=== PATIENT | male | born 1955 | race Caucasian/White ===

== ENCOUNTER → 2023-05-25 10:51 | Outpatient (REF) | payer OTHER, SELFPAY | LOC: HWRCS 10:51 | PROVIDERS: ATTENDING PHYSICIAN Internal Medicine Cardiovascular Disease; FAMILY PHYSICIAN Emergency Medicine | DX: R06.02 Shortness of breath (principal) | CPT/HCPCS: 93306 ==

== ENCOUNTER → 2023-06-02 07:06 | Outpatient (REF) | payer OTHER, SELFPAY | LOC: DHCBC/DCA 07:06 | PROVIDERS: ATTENDING PHYSICIAN Internal Medicine Cardiovascular Disease; FAMILY PHYSICIAN Emergency Medicine | DX: R07.89 Other chest pain (principal) | CPT/HCPCS: 78452; 93017; A9500; J2785 ==

== ENCOUNTER → 2023-06-15 11:25 | Outpatient (REF) | payer OTHER, SELFPAY | LOC: HWRAD 11:25 | PROVIDERS: ATTENDING PHYSICIAN Internal Medicine Critical Care Medicine; FAMILY PHYSICIAN Emergency Medicine | DX: R06.09 Other forms of dyspnea (principal); R91.8 Other nonspecific abnormal finding of lung field | CPT/HCPCS: 71250 ==

== ENCOUNTER 2024-06-01 17:26 | Emergency (ER) | payer OTHER, SELFPAY ==
[2024-06-01 17:27] VITALS: BP 139/90
[2024-06-01 17:43] LABS: % Eosinophils 2.4 % (0-6); % Immature Granulocytes 0.4 % (0-0.5); % Lymphocytes 39.6 % (20.5-51.1); % Monocytes 6.9 % (1.7-9.3); % Neutrophils 49.7 % (42.2-75.2); Absolute Basophils 0.1 10^3/uL (0-0.2); Absolute Eosinophils 0.2 10^3/uL (0-0.7); Absolute Lymphocytes 3.2 10^3/uL (1.2-3.4); Absolute Monocytes 0.6 10^3/uL (0.1-0.6); Hematocrit 49.2 % (39.0-52.0); Hemoglobin 16.9 g/dL (13.0-18.0); Mean Corp Hgb Conc. 34.3 g/dL (33.0-37.0); Mean Corpuscular Hgb 30.9 pg (27.0-31.0); Mean Corpuscular Volume 89.9 fL (80.0-94.0); Mean Platelet Volume 9.1 fL (7.4-10.4); Nucleated Red Blood Cells % 0 % (-); Platelet Count 163 10^3/uL (130-400); Red Blood Cell Count 5.47 10^6/uL (4.70-6.10); Red Cell Dist. Width 13.3 % (11.5-14.5)
[2024-06-01 18:09] LABS: ALT (SGPT) 38 U/L (0-50); AST (SGOT) 35 U/L (17-59); Albumin 4.4 g/dl (3.5-5.0); Alkaline Phosphatase 99 U/L (38-126); Blood Urea Nitrogen 21 mg/dl (9-20); Calcium 9.5 mg/dl (8.4-10.2); Carbon Dioxide 27 mmol/L (22-30); Chloride 105 mmol/L (98-107); Glucose 102 mg/dl (70-99); Potassium 4.2 mmol/L (3.5-5.1); Sodium 139 mmol/L (135-145); Total Bilirubin 0.6 mg/dl (0.2-1.3); Total Protein 7.2 g/dl (6.3-8.2); eGFR > 60.00
[2024-06-01 19:51] VITALS: BP 141/90
[2024-06-01 19:52] VITALS: BMI 32.9
[2024-06-01 20:00] VITALS: BP 138/88
--- NOTE | 2024-06-01 20:04 | ED.GENMED ---
History of Present Illness
General
Chief Complaint: Skin Problem
Source: patient
Exam Limitations: none
Time Seen by Provider: 06/01/24 19:59
Nursing documentation reviewed up to this point in time: agreed with
History of Present Illness
History of Present Illness:
68 yr old male presents to the ER for evaluation. Patient reports on Wednesday 3 days ago he was walking with socks and a splinter went through his socks from a hardwood floor. He was able to remove part of splinter but believes he still has a piece
retained in his right foot. He did start with some redness and swelling to the area which is why he came to the ER. He is a diabetic . He denies any fever/chills. c/o of mild soreness to right foot.
Past History
Past History
ED Past Medical History: Hypercholesterolemia, NIDDM (Patient states he was taken off of his diabetic medication since he lost over 50 pounds.), Hypothyroidism and Other (Anaphylaxis)
Social History
Tobacco: Non-smoker
Alcohol: None
Drug: None
Personal:
Living: with family
Employment: Employed
Family History
Family History: Other ([place])
Review of Systems
Review of Systems
Allergies reviewed?: Yes
All Other Systems: ROS reviewed and negative except as documented in HPI and ROS
Constitutional: Reports no symptoms; Denies fever
Cardiac: Reports no symptoms
ABD/GI: Reports no symptoms
: Reports no symptoms
Musculoskeletal: Reports no symptoms
Skin: Reports no symptoms
Neurological: Reports no symptoms
Hematologic/Lymphatic: Reports no symptoms
Psychiatric: Reports no symptoms
Phy Exam
General Physical Exam
General Presentation: no apparent distress
General age: appears stated age
General Skin: warm and dry
General Habitus: normal
General Mental: alert
General Hydration: appears well hydrated
Neurological Exam
Neurological Exam: alert and oriented x3
Musculoskeletal Exam
Musculoskeletal Exam: full ROM and other (+ Puncture to right lateral foot along fifth metatarsal with mild surrounding erythema and swelling)
Skin Exam
Skin Exam: normal color and warm/dry
Psychiatric Exam
Psychiatric Exam: normal mood/affect
Course
Orders/Labs/Results
Orders:
Orders
06/01/24 17:34
Complete Blood Count/With Diff Urgent
Comprehensive Metabolic Panel Urgent
06/01/24 20:05
Foot, Right 3 View [CR Foot - Right Min 3 Views] Urgent
Comment:
Reason For Exam: foreign body lateral foot
06/01/24 21:22
Cephalexin Monohydrate [Keflex] 500 mg PO NOW STA
Abnormal Lab Results
06/01/24
17:34
BUN 21 H mg/dl
(9-20)
Glucose 102 H mg/dl
(70-99)
06/01/24 17:34
06/01/24 17:34
Vital Signs
Initial and Last Documented VS:
Initial Vital Signs
Temp Pulse Resp BP Pulse Ox
98.0 F 71 16 139/90 98
06/01/24 17:27 06/01/24 17:27 06/01/24 17:27 06/01/24 17:27 06/01/24 17:27
Last Documented Vital Signs
Temp Pulse Resp BP Pulse Ox
98.0 F 70 16 135/89 97
06/01/24 17:27 06/01/24 21:49 06/01/24 17:27 06/01/24 21:49 06/01/24 21:49
Procedures
Foreign Body Removal-Skin
Wound explored and foreign body removed?: Yes
Anesthesia: local
Foreign body removed using: incision
Foreign body removed: completely
MDM/Problems Addressed
MDM/Problems Addressed:
As documented patient is a 68-year-old male whose had a splinter in his foot 2 days ago. He was able to remove a piece of the splinter but still felt that he had a splinter retained. I was able to visualize the end of the splinter in his right
lateral foot. I was able to anesthetize his foot and using a small 11 blade scalpel with a very small incision was able to successfully remove a splinter in 1 piece. Patient has very mild erythema to this area will DC on Keflex. He was wearing a
sock when the splinter initially went into his foot and not a sneaker/boot. He denies any fever chills he is nontoxic I did review very close outpatient follow-up with family doctor for this and to return if any worsening of symptoms, s/s of
infection reviewed.
*Radiology
Radiology exam reviewed: radiology read reviewed
*Pulse Oximetry
Patient hypoxic: no
*Critical Care Note
Total Time (30-74mins, 75-104mins- exclusive of procedures): Not Applicable
ED Attending Note
-
Portions of this chart may have been created with voice recognition software.� Occasional wrong word or��sound alike� substitutions may have occurred due to the inherent limitations of voice recognition software.
Discharge Plan
Departure
Patient Disposition: Home (Routine Discharge)
Date of Disposition: 06/01/24
Time of Disposition: 21:23
Patient with high blood pressure during this ER visit?: Yes
Condition: Fair
Covid-19: Not Applicable
Discharge Problem:
Foreign body (FB) in soft tissue
Instructions: Foreign Body in Skin ED, BLOOD PRESSURE
Prescriptions:
New
cephalexin 500 mg capsule
500 mg PO Q6H Qty: 20 0RF
No Action
epinephrine [EpiPen 2-Hiram] 0.3 MG/0.3 ML auto-injector
0.3 mg IM ONCE PRN (Reason: severe allergic rxn) Qty: 2 0RF
levothyroxine 100 MCG tablet
100 mcg PO DAILY
Patient Comments:
total 188mg
levothyroxine 88 MCG tablet
88 mcg PO DAILY
Patient Comments:
total 188 mg
allopurinol 300 MG tablet
300 mg PO DAILY
pravastatin 20 MG tablet
20 mg PO DAILY
albuterol sulfate 1 PUFF HFA aerosol inhaler
2 puff inhalation R Q4HPRN PRN (Reason: SOB)
tadalafil [Cialis] 10 MG tablet
10 mg PO PRN PRN (Reason: sex)
losartan 25 MG tablet
25 mg PO DAILY
ergocalciferol (vitamin D2) 50,000 UNITS capsule
50,000 units PO CARLSON
multivitamin with folic acid [Tab-A-Riaz] 1 TABLET tablet
1 tab PO DAILY
prednisone 10 MG tablet
10 mg PO .TAPER Qty: 30 0RF
Rx Instructions:
Take 40mg daily x3days, 30mg daily x3days,
20mg daily x3days, 10mg daily x3days.
albuterol sulfate 2.5 MG/3 ML solution for nebulization
2.5 mg inhalation R Q4HPRN PRN (Reason: breathing) Qty: 30 0RF
oxycodone-acetaminophen [Percocet] 5-325 mg tablet
1 tab PO Q4HPRN PRN (Reason: pain) Qty: 12 0RF
prednisone 20 mg tablet
40 mg PO DAILY Qty: 10 0RF
cyclobenzaprine 10 mg tablet
10 mg PO TID PRN (Reason: muscle spasm) Qty: 10 0RF
albuterol sulfate 1.25 mg/3 mL solution for nebulization
1.25 mg inhalation QID PRN (Reason: shortness of breath or wheezing) Qty: 90 0RF
levofloxacin 500 mg tablet
500 mg PO DAILY 7 Days Qty: 7 0RF
prednisone 50 mg tablet
50 mg PO DAILY Qty: 5 0RF
Referrals:
Bria Sanchez MD [Family Provider] -
Activity Restrictions/Additional Instructions:
As discussed antibiotic was sent to her pharmacy to take daily for the next 5 days. Please closely monitor foot. Return if any increasing redness, red streaking, pain, fever, chills or drainage. Wash with soap and water twice a day. Do not apply
ointment to the area allowed to drain. See your family in 2 days for wound check.
Interventions
Interventions:
*Risk Screen - Suicide Last Done: 06/01/24 17:27
*General Assessment Last Done: 06/01/24 17:27
*Neglect/Abuse Screening Last Done: 06/01/24 17:27
ED- Fall Risk Assessment Last Done: 06/01/24 19:52
*ED COVID-19 Vaccine History Last Done: 06/01/24 17:27
*Nursing Disposition Last Done: 06/01/24 21:40
ED-Skin Assessment Last Done: 06/01/24 19:52
Discharge Date and Time
Discharge Date/Time: 06/01/24 21:50
Print Language: [place]
[2024-06-01] MEDS: KEFLEX 500 MG PO (21:41)
[2024-06-01 21:48] VITALS: BP 135/89
[2024-06-01 21:49] VITALS: BP 135/89
== END 2024-06-01 21:50 | disposition home or self-care (01) ==
LOC: EMR 17:26
PROVIDERS: Student in an Organized Health Care Education/Training Program; EMERGENCY PHYSICIAN Emergency Medicine; FAMILY PHYSICIAN Emergency Medicine
DX: M79.5 Residual foreign body in soft tissue (principal); W45.8XXA Other foreign body or object entering through skin, initial encounter; E78.00 Pure hypercholesterolemia, unspecified; E11.9 Type 2 diabetes mellitus without complications; E03.9 Hypothyroidism, unspecified
CPT/HCPCS: 99283; 10120; 73630; 80053; 85025

== ENCOUNTER 2024-09-29 09:43 | Emergency (ER) | payer SELFPAY ==
[2024-09-29 09:46] VITALS: BP 141/92
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
[2024-09-29] MEDS: TORADOL 30 MG IM (10:30)
[2024-09-29 11:39] VITALS: BP 135/91
== END 2024-09-29 11:45 | disposition home or self-care (01) ==
LOC: EMR 09:43
PROVIDERS: EMERGENCY PHYSICIAN Student in an Organized Health Care Education/Training Program; FAMILY PHYSICIAN Emergency Medicine
DX: S13.4XXA Sprain of ligaments of cervical spine, initial encounter (principal); M54.9 Dorsalgia, unspecified; V79.40XA Driver of bus injured in collision with unspecified motor vehicles in traffic accident, initial encounter; E78.00 Pure hypercholesterolemia, unspecified; E11.9 Type 2 diabetes mellitus without complications; E03.9 Hypothyroidism, unspecified
CPT/HCPCS: 96372; 99284; 72050; 72110

== ENCOUNTER 2025-04-23 06:34 | Emergency (ER) | payer OTHER, SELFPAY ==
[2025-04-23 06:38] VITALS: BP 150/86
--- NOTE | 2025-04-23 07:21 | ED.GENMED ---
History of Present Illness
General
Chief Complaint: Musculo-Skeletal Complaint
Source: patient
Time Seen by Provider: 04/23/25 07:12
History of Present Illness
History of Present Illness:
69-year-old male presenting to the emergency department for evaluation after he was stepping off of his tractor yesterday afternoon when he felt a sudden pain in the back of his right knee, since that time has been unable to range of motion the knee
due to pain and notes a harder time ambulating secondary to the pain. He did not take anything for the pain prior to arrival. He notes some mild nonspecific injuries to the knee previously but no hardware within the right knee. No fevers or
infectious symptoms. No other concerns.
Past History
Past History
ED Past Medical History: Asthma, COPD, Hypercholesterolemia, NIDDM (Patient states he was taken off of his diabetic medication since he lost over 50 pounds.), Hypothyroidism and Other (Anaphylaxis)
ED Past Surgical History: Orthopedic and Urological
Social History
Tobacco: Non-smoker
Alcohol: None
Drug: None
Personal:
Living: with family
Employment: Employed
Family History
Family History: Other ([place])
Review of Systems
Review of Systems
All Other Systems: ROS reviewed and negative except as documented in HPI and ROS
Phy Exam
Physical Exam
Physical Exam:
GENERAL: Alert , in no apparent distress
EYE: conjunctiva clear
Head: Normocephalic atraumatic
NECK: Supple,
ENT: mmm.
LUNGS: no acute respiratory distress
NEUROLOGICAL: Alert and oriented
SKIN: Warm and dry, skin intact.
MUSCULOSKELETAL: Right lower extremity: Right knee has no obvious deformity, erythema, edema, ecchymosis, abrasions or lacerations. There is no joint effusion. There is mild tenderness posteriorly on palpation. The patella and quadriceps tendon
are intact. Extremities otherwise warm and well-perfused. Range of motion of the right knee is significantly limited due to pain.
PSYCH: Normal and appropriate interaction.
Scores
Heart Failure Risk
Heart Failure Risk Score: Not Applicable
Heart Score for Chest Pain Patients
STEMI patient?: Not applicable
Withdrawal Assessment of Alcohol
Withdrawal Assessment Completed?: Not applicable
Course
Orders/Labs/Results
Orders:
Orders
04/23/25 06:42
Knee, Right 4 or More Views [CR Knee- Right 4 Or More View*] Urgent
Comment:
Reason For Exam: pain, no direct impact.
04/23/25 07:20
Knee Immobilizer Right-Treatme ONCE
Oxycodone/Acetaminophen [Percocet 5/325] 1 tablet PO NOW STA
Vital Signs
Initial and Last Documented VS:
Initial Vital Signs
Temp Pulse Resp BP Pulse Ox
97.9 F 70 18 150/86 98
04/23/25 06:38 04/23/25 06:38 04/23/25 06:38 04/23/25 06:38 04/23/25 06:38
Last Documented Vital Signs
Temp Pulse Resp BP Pulse Ox
97.9 F 70 18 150/86 98
04/23/25 06:38 04/23/25 06:38 04/23/25 06:38 04/23/25 06:38 04/23/25 07:21
MDM/Problems Addressed
Differential Diagnosis Includes:
Ligamentous injury
Meniscal injury
Tendon injury
Fracture
Dislocation/Subluxation
MDM/Problems Addressed:
69-year-old male presenting the ER for evaluation of posterior right knee pain starting after he had jumped down from his tractor yesterday afternoon. Severe limited range of motion and pain. X-ray ordered from triage shows degenerative changes
throughout the knee, high riding patella but no acute fracture. Will place in a knee immobilizer. Advised continued NSAIDs, RICE recommendations. Information for orthopedics provided. Patient is requesting something additional for pain so I did
send a prescription for Percocet. [place] PDMP reviewed without any prescriptive abnormalities for opiates seen.
*Radiology
Radiology exam reviewed: preliminary read by ED provider (No acute fracture, degenerative changes noted.)
*Pulse Oximetry
SaO2: 98
Oxygen Mode of Delivery: Room air
Patient hypoxic: no
*Critical Care Note
Total Time (30-74mins, 75-104mins- exclusive of procedures): Not Applicable
ED Attending Note
-
Portions of this chart may have been created with voice recognition software.� Occasional wrong word or��sound alike� substitutions may have occurred due to the inherent limitations of voice recognition software.
Discharge Plan
Departure
Patient Disposition: Home (Routine Discharge)
Date of Disposition: 04/23/25
Time of Disposition: 07:21
Patient with high blood pressure during this ER visit?: Yes
Discharge Problem:
Pain in right knee
Instructions: Knee Sprain (DC)
Prescriptions:
New
oxycodone-acetaminophen [Percocet] 5-325 mg tablet
1 tab PO Q6HPRN PRN (Reason: pain) Qty: 8 0RF
No Action
epinephrine [EpiPen 2-Hiram] 0.3 MG/0.3 ML auto-injector
0.3 mg IM ONCE PRN (Reason: severe allergic rxn) Qty: 2 0RF
levothyroxine 100 MCG tablet
100 mcg PO DAILY
Patient Comments:
total 188mg
levothyroxine 88 MCG tablet
88 mcg PO DAILY
Patient Comments:
total 188 mg
allopurinol 300 MG tablet
300 mg PO DAILY
pravastatin 20 MG tablet
20 mg PO DAILY
albuterol sulfate 1 PUFF HFA aerosol inhaler
2 puff inhalation R Q4HPRN PRN (Reason: SOB)
tadalafil [Cialis] 10 MG tablet
10 mg PO PRN PRN (Reason: sex)
losartan 25 MG tablet
25 mg PO DAILY
ergocalciferol (vitamin D2) 50,000 UNITS capsule
50,000 units PO CARLSON
multivitamin with folic acid [Tab-A-Riaz] 1 TABLET tablet
1 tab PO DAILY
prednisone 10 MG tablet
10 mg PO .TAPER Qty: 30 0RF
Rx Instructions:
Take 40mg daily x3days, 30mg daily x3days,
20mg daily x3days, 10mg daily x3days.
albuterol sulfate 2.5 MG/3 ML solution for nebulization
2.5 mg inhalation R Q4HPRN PRN (Reason: breathing) Qty: 30 0RF
oxycodone-acetaminophen [Percocet] 5-325 mg tablet
1 tab PO Q4HPRN PRN (Reason: pain) Qty: 12 0RF
prednisone 20 mg tablet
40 mg PO DAILY Qty: 10 0RF
cyclobenzaprine 10 mg tablet
10 mg PO TID PRN (Reason: muscle spasm) Qty: 10 0RF
albuterol sulfate 1.25 mg/3 mL solution for nebulization
1.25 mg inhalation QID PRN (Reason: shortness of breath or wheezing) Qty: 90 0RF
levofloxacin 500 mg tablet
500 mg PO DAILY 7 Days Qty: 7 0RF
prednisone 50 mg tablet
50 mg PO DAILY Qty: 5 0RF
cephalexin 500 mg capsule
500 mg PO Q6H Qty: 20 0RF
Referrals:
Franck Tong MD [Active, Orthopedics]
Interventions
Interventions:
*General Assessment Last Done: 04/23/25 08:06
*Neglect/Abuse Screening Last Done: 04/23/25 08:08
[facility] Fall Risk Assessment Tool Last Done: 04/23/25 08:07
*Risk Screen - Suicide (C-SSRS) Last Done: 04/23/25 06:38
*Nursing Disposition Last Done: 04/23/25 08:09
ED-Musculoskeletal Assessment Last Done: 04/23/25 08:06
Discharge Date and Time
Print Language: URDU
[2025-04-23] MEDS: PERCOCET 5/325 1 TABLET PO (07:42)
== END 2025-04-23 08:24 | disposition home or self-care (01) ==
LOC: EMR 06:34
PROVIDERS: EMERGENCY PHYSICIAN Emergency Medicine
DX: M25.561 Pain in right knee (principal); R03.0 Elevated blood-pressure reading, without diagnosis of hypertension
CPT/HCPCS: 99283; 29505; 73564